=== PATIENT | female | born 1995 | race Caucasian/White ===

== ENCOUNTER 2023-01-13 07:53 | Emergency (ER) | payer OTHER, SELFPAY ==
[2023-01-13 07:59] VITALS: BP 118/74; PULSE 77; RESP 16; TEMP 36.2; O2SAT 100; BMI 21.6
--- NOTE | 2023-01-13 08:59 | ED.GENADULT ---
HPI - General Adult General Chief complaint: Animal Bite Stated complaint: bug bite r arm Time Seen by Provider: 01/13/23 08:56 Related Data Allergies Allergy/AdvReac Type Severity Reaction Status Date / Time Sulfa (Sulfonamide Allergy Intermediate HIVES Unverified 03/11/20 16:19 Antibiotics) [SULFA (SULFONAMIDE ANTIBIOTICS)] penicillin V AdvReac Unknown shortness Verified 10/30/19 00:00 of breath Sulfa Allergy Unknown hives Uncoded 10/30/19 00:00 PMFSH Social History Social History Alcohol intake: current Alcohol intake frequency: holidays/special occasions only Smoked in Last 30 Days: No Use of substances other than those prescribed or required for medical reasons: No Advance Directives: No Advance Directives Information Provided: No Physical Exam ED Vital Signs: Vital Signs - 24 hr 01/13/23 07:59 Temperature 97.2 F Pulse Rate 77 Respiratory Rate 16 Blood Pressure 118/74 Pulse Oximetry 100 Oxygen Delivery Method Nasal Cannula BMI result Body Mass Index 21.6 Discharge Plan Discharge Patient Disposition: Left Without Being Seen Discharge Date/Time: 01/13/23 09:44
--- NOTE | 2023-01-13 09:42 | PC.NURSE ---
left without being seen as too long and had stuff to do I explained that the provider was tied up with a sick patient and she didn't care to wait any longer.
== END 2023-01-13 09:44 | disposition left against medical advice (07) ==
PROVIDERS: Emergency Provider Emergency Medicine
DX: S50.862A Insect bite (nonvenomous) of left forearm, initial encounter (principal); W57.XXXA Bitten or stung by nonvenomous insect and other nonvenomous arthropods, initial encounter; Y93.9 Activity, unspecified; Y92.9 Unspecified place or not applicable; Y99.9 Unspecified external cause status
CPT/HCPCS: 99282; 99283

== ENCOUNTER 2023-11-24 07:30 | Emergency (ER) | payer OTHER, SELFPAY ==
[2023-11-24 07:31] VITALS: BP 98/56; PULSE 57; RESP 19; TEMP 36.6; O2SAT 98; BMI 21.5
[2023-11-24 07:50] VITALS: BP 109/55; PULSE 66; RESP 17; TEMP 36.6; O2SAT 99
--- NOTE | 2023-11-24 07:58 | ED_ITS ---
HPI - General Adult General Chief complaint: General Medical Stated complaint: Lump in right breast Time Seen by Provider: 11/24/23 07:46 Source: patient Mode of arrival: ambulatory Limitations: no limitations History of Present Illness ED Provider: DR. Garcia HPI narrative: 28-year-old female who was otherwise healthy came in concern of incidental mass found on her right breast while patient was checking herself last week, patient has no PCP currently and trying to find PCP for a while now. No known family history of breast cancer. No weight loss, no night sweat, no breast pain, no nipple bleeding or discharge. Related Data Allergies Allergy/AdvReac Type Severity Reaction Status Date / Time Sulfa (Sulfonamide Allergy Intermediate HIVES Verified 11/24/23 07:33 Antibiotics) [SULFA (SULFONAMIDE ANTIBIOTICS)] penicillin V AdvReac Unknown shortness Verified 11/24/23 07:33 of breath Sulfa Allergy Unknown hives Uncoded 11/24/23 07:33 Review of Systems Review of Systems: All other systems are reviewed and are negative Constitutional: Reports as per HPI and Reports no additional constitutional complaints Eyes: Reports as per HPI and Reports no additional eye complaints Reports system reviewed and no additional complaints, except as documented Cardiovascular: Reports as per HPI and Reports no additional cardiovascular complaints Respiratory: Reports as per HPI and Reports no additional respiratory complaints Gastrointestinal: Reports as per HPI and Reports no additional gastrointestinal complaints Genitourinary: Reports no additional female genitourinary complaints Musculoskeletal: Reports no additional musculoskeletal complaints Skin/Breast: Reports system reviewed and no additional complaints, except as docu Psychiatric: Reports no additional psychiatric complaints Endocrine: Reports no additional endocrine complaints Hematologic/Lymphatic: Reports no additional hematologic/lymphatic complaints Allergic/Immunologic: Reports no additional allergic/immunologic complaints Reports system reviewed and no additional complaints, except as documented and Reports Abnormal speech present [facility] Social History Social History Alcohol intake: current Alcohol intake frequency: holidays/special occasions only Advance Directives: No Physical Exam ED Vital Signs: Vital Signs - 24 hr 11/24/23 07:31 11/24/23 07:50 Temperature 98 F 97.9 F Pulse Rate 57 66 Respiratory Rate 19 17 Blood Pressure 98/56 L 109/55 L Pulse Oximetry 98 99 Oxygen Delivery Method Room Air Room Air BMI result Body Mass Index 21.5 Vital signs have been reviewed and appear to be correct. Blood pressure elevated. Heart rate normal. Respiratory rate normal. Temperature normal. Oxygen saturation normal. Appearance: Alert. Oriented X3. No acute distress. Head: Normal external exam. Normocephalic. Atraumatic. No Mchugh signs noted. No raccoon eyes noted Eyes: PERRLA. EOMI. Conjunctiva and sclera normal. Eyelids normal. ENT: TM's Normal. Pharynx normal. Uvula midline. Moist mucous membranes. No trismus noted. No drooling noted. No muffled voice noted. Neck: Normal inspection. Neck supple. FROM. No adenopathy. Thyroid Normal. No meningeal signs. No neck mass noted. CVS: Normal heart rate and rhythm. Heart sound normal. No murmurs noted. Pulses normal throughout. Breast exam: In the presence of female preschool assistant teacher in room bilateral breast exam was performed revealed no enlarged lymph node, 2 x 3 cm area of nontender mobile right breast mass at 10:00 o'clock zone of the right breast, no nipple discharge, no nipple bleeding. Respiratory: No respiratory distress. Painless inspiration. Breath sounds normal. No wheezes/rales/rhonchi noted. Chest nontender. No accessory muscle usage noted or decreased air movement noted. Abdomen: Soft and nontender. Bowel sounds normal in all 4 quadrants. No distention noted. No organomegaly noted. No visible injury noted. Back: No CVA tenderness. Full range of motion noted. Skin: Skin warm and dry. Normal skin color. Normal skin turgor. No rashes/lesions/lacerations noted. Extremities: No lower extremity edema. Extremities exhibit normal range of motion. Extremities nontender. Neuro: Oriented X 3. Cranial nerve exam: II-XII are grossly intact No motor deficit. No sensory deficit. Reflexes normal. Course Reevaluation(s) Reevaluation #1: Unfortunate 28-year-old female otherwise healthy came in for evaluation of inc idental right breast mass, patient indeed will need follow-up with PCP/general surgeon for further evaluation. Will refer to [facility] and general surgeon. Patient was made aware that follow-up with mammogram/ultrasound brenna is empirical. Emergent mammogram is not available test in our facility that usually require referral from PCP. Time: 08:05 Medical Decision Making Differential Diagnosis Differential Diagnoses: The differential diagnosis associated with the presenta tion includes (Right breast cellulitis, right breast mass.) Admission/Observation Consideration of admission/observation: Escalation of care including admission/observation considered Discharge Plan Discharge Clinical Impression: Breast mass, right Patient Disposition: Home, Self-Care Instructions: Breast Mass (ED), Breast Self Exam for Women (ED) Referrals: Brandt Solitario MD [Physician] - Amberly Perez MD [Physician] - Print Language: Prydeinig
[2023-11-24 08:19] VITALS: BP 109/55; PULSE 66; RESP 17; TEMP 36.6; O2SAT 99
== END 2023-11-24 08:19 | disposition home or self-care (01) ==
PROVIDERS: Emergency Provider Emergency Medicine
DX: N63.11 Unspecified lump in the right breast, upper outer quadrant (principal)
CPT/HCPCS: 99283

== ENCOUNTER 2023-12-11 09:45 | Outpatient (AMB) | payer OTHER, SELFPAY ==
--- NOTE | 2023-12-11 09:55 | MHC.OFFVIS ---
Vital Signs 12/11/23 10:04 Height 5 ft 4 in Weight 125 lb BMI 21.5 BP 110/67 Blood Pressure Location Lt brachial Position Sitting Pulse 56 Intake Visit Reasons: ER f/u breast mass Intake Note: Patient is seen in office for ER follow up visit, following right breast lump. Pt c/o: feels a lump on the right breast for 3 wks, admits to increase, painful only with bra, denies redness, discoloration, no fm hx of breast concerns ED:11/24/23 Legal Examiner Required: No Refrigerator Repair Technician: Refrigerator Repair Technician Present Accompanied by: Self / Same As Patient Allergies Sulfa (Sulfonamide Antibiotics) [SULFA (SULFONAMIDE ANTIBIOTICS)] Allergy (Intermediate, Verified 12/11/23 10:01) HIVES penicillin V Adverse Reaction (Unknown, Verified 12/11/23 10:01) shortness of breath Sulfa Allergy (Unknown, Uncoded 12/11/23 10:01) hives Medication List - Last Reconciled 12/11/23 by Ramone Shaw MD propranolol ER 60 mg PO DAILY HPI Comments Details: 28-year-old female patient presenting with a three-week history of a palpable breast mass noted in the right breast at the upper outer quadrant. She noted pain in the right breast after wearing a wire bra rather than a sports bra and subsequently noted the palpable lump. She denies a previous history of breast problems or breast surgery. Her family history is negative for breast cancer. She was evaluated in the emergency department and the palpable lump confirmed. No imaging was performed the emergency department. Since her evaluation on 11/24/2023, she feels the lump has possibly increased in size. She denies any overlying skin changes or nipple discharge. She is G0. [facility] Medical History (Updated 12/11/23 @ 10:34 by Ramone Shaw MD) Migraine headache Family History (Updated 12/11/23 @ 10:03 by MAYRA Ball) Maternal Grandmother Lung cancer Social History Alcohol intake: current Alcohol intake frequency: holidays/special occasions only Female Reproductive History Menstrual Age of Menarche: 11 Review of Systems Const All systems reviewed & are unremarkable except as noted in HPI and below Denies chills, Denies fever(s), Denies headache(s), Denies poor appetite and Denies weakness ENT Denies headache(s) Card Denies chest pain, Denies irregular heart rhythm, Denies palpitations and Denies dyspnea Resp Denies cough, Denies excessive phlegm production and Denies dyspnea GI Denies abdominal pain, Denies bloating, Denies change in bowel habits, Denies constipation, Denies heartburn, Denies diarrhea, Denies nausea and Denies vomiting Denies urinary frequency Musc Denies back pain, Denies muscle weakness and Denies numbness Skin/Breast Reports as per HPI, Reports breast pain, Reports breast mass, Denies changing lesions and Denies unusual bruising Neuro Denies headache(s), Denies numbness, Denies paresthesias and Denies weakness Psych Denies anxiety and Denies depression Endo Denies palpitations Jv/Lymph Denies lymphadenopathy Physical Exam Const General: cooperative and no acute distress Nutritional Appearance: well nourished Orientation/consciousness: patient oriented x3 Limitations: no limitations HEENT Head: Yes normocephalic and Yes atraumatic Ears: hearing grossly normal bilaterally Chest Other: Left breast: No skin change, no nipple retraction, no nipple discharge, no palpable mass, no enlarged lymph nodes. Right breast: No skin change, no nipple retraction, no nipple discharge, palpable mass approximately 1.5 cm in diameter located in the upper outer quadrant, 10:00 o'clock, mobile within the breast tissue and nontender to palpation. No other palpable mass and no enlarged lymph nodes. Chest/axillae images: 1. Site of palpable mass upper outer quadrant right breast Resp Effort & Inspection: normal respiratory effort, no audible wheezes, no cough and no respiratory distress Cardio Jugular venous distension: no JVD GI Inspection: Yes normal to inspection Skin Other: Warm, dry, no rash Neuro General: patient oriented x3 Extrem General: Yes no clubbing, cyanosis or edema Assessment & Plan Assessment & Plan (1) Breast mass, right: Code(s): N63.10 - Unspecified lump in the right breast, unspecified quadrant Category: Medical Qualifiers: Breast mass location: upper outer quadrant Qualified Code(s): N63.11 - Unspecified lump in the right breast, upper outer quadrant Plan 28-year-old female patient presenting with a palpable mass located in the right breast at the upper outer quadrant 1st noted approximately 3 weeks ago. On examination she is noted to have a mobile mass measuring approximately 1.5 cm in diameter, most consistent with a fibroadenoma. I recommended further workup with mammogram and ultrasound. I would suspect she will require a needle core biopsy but will await further workup. Patient expressed understanding and agrees with the plan. Orders: Orders MM diagnostic mammo BI Today N63.10 - Unspecified lump in the right breast, unspecified quadrant US breast RT limited Today N63.10 - Unspecified lump in the right breast, unspecified quadrant Coding Level of Care Code New Pt Level 4 (58195) Diagnoses Mass of upper outer quadrant of right breast N63.11 Breast mass location: upper outer quadrant
[2023-12-11 10:04] VITALS: BP 110/67; PULSE 56; BMI 21.5
== END 2023-12-11 10:32 | disposition home or self-care (01) ==
PROVIDERS: Visit Provider Surgery
DX: N63.11 Unspecified lump in the right breast, upper outer quadrant (principal)
CPT/HCPCS: 99204

== ENCOUNTER → 2023-12-11 09:45 | Outpatient (BNVA) | payer OTHER, SELFPAY | PROVIDERS: Visit Provider Surgery | DX: N63.11 Unspecified lump in the right breast, upper outer quadrant (principal) | CPT/HCPCS: 99202 ==

== ENCOUNTER 2023-12-12 13:18 | Outpatient (REF) | payer OTHER, SELFPAY ==
--- NOTE | ~2023-12-12 | US_ITS ---
EXAMINATION: US DIAGNOSTIC ULTRASOUND BREAST, RIGHT CLINICAL INFORMATION: 28-year-old female, palpable mass 10:00 axis right breast. COMPARISON: None available. TECHNIQUE: Ultrasound of the right breast is performed with real-time jovel scale imaging and color Doppler. Attention was given to the palpable abnormality at the 10:00 axis with scanning from the 8:00 to the 12:00 axis. FINDINGS: At the 10:00 axis, 4 cm from the nipple, there is a palpable cluster of cysts present, with a dominant cyst measuring up to 1.6 x 1.3 x 1.5 cm. There are 2 abutting smaller cysts with a thin septation intervening. No color Doppler signal or soft tissue nodularity within the septation. These findings are benign. No follow-up is recommended. Incidentally noted at the 12:00 axis is an oval complicated cyst versus benign fibroadenoma with circumscribed margins, wider than tall, good through transmission, hypoechoic with low-level internal echoes, no internal color Doppler flow, measuring 1.0 x 0.5 x 0.7 cm. This is probably benign and six-month interval follow-up targeted right breast ultrasound recommended. No suspicious findings are evident sonographically. Results are provided to the patient at time of visit by the technologist. US/US breast RT limited mamm only IMPRESSION: -Palpable focus right breast corresponds with a benign cluster of cysts, with a dominant cyst measuring up to 1.6 cm. These findings are benign and no further follow-up recommended. Cyst Aspiration could be performed should this be bothersome to the patient. -Incidentally noted right breast 12:00 axis is a probable circumscribed fibroadenoma versus complicated cyst measuring 1.0 x 0.5 x 0.7 cm, with good through transmission. Six-month interval follow-up targeted right breast ultrasound recommended to ensure stability. ASSESSMENT: BI-RADS 3 - Probably benign finding(s) - 6 month follow-up suggested RECOMMENDATION: 6 Month F/U This patient's information was entered into a reminder system with a target due date for their follow-up.
== END 2023-12-12 13:19 | disposition home or self-care (01) ==
LOC: HO.MAMMO 13:18
PROVIDERS: Visit Provider Surgery
DX: N63.11 Unspecified lump in the right breast, upper outer quadrant (principal)
CPT/HCPCS: 76642

== ENCOUNTER → 2023-12-12 13:30 | Outpatient (BNV) | payer OTHER, SELFPAY | PROVIDERS: Visit Provider Radiology Diagnostic Radiology | DX: D24.1 Benign neoplasm of right breast (principal) | CPT/HCPCS: 76642 ==

== ENCOUNTER 2023-12-18 09:11 | Outpatient (AMB) | payer OTHER, SELFPAY ==
[2023-12-18 09:23] VITALS: BP 94/60; PULSE 60; RESP 16; BMI 21.4
--- NOTE | 2023-12-18 09:23 | MHC.OFFVIS ---
Vital Signs 12/18/23 09:23 Height 5 ft 4 in Weight 124 lb 12.506 oz BMI 21.4 BP 94/60 Blood Pressure Location Lt brachial Position Sitting Respiration 16 Pulse 60 Intake Visit Reasons: s/p mammo and US Allergies Sulfa (Sulfonamide Antibiotics) [SULFA (SULFONAMIDE ANTIBIOTICS)] Allergy (Intermediate, Verified 12/11/23 10:01) HIVES penicillin V Adverse Reaction (Unknown, Verified 12/11/23 10:01) shortness of breath Medication List - Last Reconciled 12/18/23 by Navi Solomon RN propranolol ER 60 mg PO DAILY HPI Comments Details: 28-year-old female patient returning following her recent ultrasound of the right breast which revealed a cluster of cysts corresponding to the palpable mass in the upper outer quadrant right breast. Also identified was a smaller density suggestive of a fibroadenoma in the 12 o'clock position right breast. Repeat ultrasound in 6 months was recommended and has been ordered. She continues to report discomfort associated with a palpable mass in the upper outer quadrant. We discussed needle aspiration and she wishes to proceed with this today. [facility] Medical History Migraine headache Family History Maternal Grandmother Lung cancer Social History Alcohol intake: current Alcohol intake frequency: holidays/special occasions only Female Reproductive History Menstrual Age of Menarche: 11 Review of Systems Const All systems reviewed & are unremarkable except as noted in HPI and below Physical Exam Vital Signs: Last Vital Signs Pulse 60 12/18/23 09:23 Resp 16 12/18/23 09:23 BP 94/60 12/18/23 09:23 BMI result Body Mass Index 21.4 Const General: comfortable Nutritional Appearance: well nourished Orientation/consciousness: patient oriented x3 Chest Chest/axillae images: 1. Palpable cyst in the upper outer quadrant Resp Effort & Inspection: normal respiratory effort Skin General skin exam: no rashes or lesions noted Neuro General: patient oriented x3 Office Procedures FNA BIOPSY FNA Biopsy Preoperative diagnosis: Right breast cyst at 10:00 o'clock Postoperative diagnosis: Same Procedure: Fine-needle aspiration right breast cyst 10:00 o'clock Surgeon: Ramone Shaw MD Residential Service Technician: None Anesthesia: Lidocaine 1% with epinephrine Indications for procedure: Painful cyst right breast upper outer quadrant (10:00 o'clock). Operative findings: 1.5 ml clear breast fluid Specimen: None Estimated blood loss: None Complications: None Procedure details: Patient was placed in a supine position. After confirming the site of procedure assuring informed consent, the skin was prepped with Betadine and draped in a sterile fashion. Local was infiltrated over the cyst. A fine needle was then inserted into the cyst and the 1.5 mL fluid aspirated. Cyst was no longer palpable following this. A sterile bandage was applied. The patient tolerated the procedure well and was discharged to home in stable condition. Fine Needle Aspiration: 26347- FNA 1st lesion w/o image Assessment & Plan Assessment & Plan (1) Breast cyst: Code(s): N60.09 - Solitary cyst of unspecified breast Category: Medical Qualifiers: Laterality: right Qualified Code(s): N60.01 - Solitary cyst of right breast Plan 28-year-old female patient presenting with a right breast cyst confirmed by ultrasound. A needle aspiration was performed today and the patient tolerated this well. Cyst is no longer palpable at this time. I recommended follow-up ultrasound in 6 months. She should follow up as needed. Coding Level of Care Code Est Pt Level 3 (48717) Diagnoses Cyst of right breast N60.01 Laterality: right CPT Codes FNA Biopsy - Fine Needle Aspiration: 97948- FNA 1st lesion w/o image ([id number])
== END 2023-12-18 09:54 | disposition home or self-care (01) ==
PROVIDERS: Visit Provider Surgery
DX: N60.01 Solitary cyst of right breast (principal)
CPT/HCPCS: 10021; 99213

== ENCOUNTER → 2023-12-18 09:11 | Outpatient (BNVA) | payer OTHER, SELFPAY | PROVIDERS: Visit Provider Surgery | DX: N63.11 Unspecified lump in the right breast, upper outer quadrant (principal); N60.01 Solitary cyst of right breast | CPT/HCPCS: 10021; 99212 ==

== ENCOUNTER 2024-01-15 10:02 | Outpatient (REF) | payer OTHER, SELFPAY ==
[2024-01-15 10:31] LABS: MANUAL DIFF FLAG NO
[2024-01-15 11:33] LABS: Basophils Percent Auto 0.5 % (0-2); Eosinophils Absolute Auto 0.3 X10*3/uL (0.0-0.4); Eosinophils Percent Auto 6.2 % (0-4); Hematocrit 40.4 % (37.0-47.0); Hemoglobin 13.4 g/dl (12.0-16.0); Imm Gran Abs Auto 0.01 X10*3/uL (0.00-0.03); Imm Gran Pct Auto 0.2 % (0.0-0.4); Lymphocytes Absolute Auto 1.1 X10*3/uL (1.2-4.9); Lymphocytes Percent Auto 26.3 % (20-40); Mean Corpuscular HGB Conc 33.2 g/dl (31.0-35.0); Mean Corpuscular Hemoglobin 31.7 pg (27.0-33.0); Mean Corpuscular Volume 95.5 fL (80.0-98.0); Mean Platelet Volume 9.5 fL (9.4-12.3); Monocytes Absolute Auto 0.4 X10*3/uL (0.1-1.2); Monocytes Percent Auto 8.3 % (2-11); Neutrophils Absolute Auto 2.5 x10*3/uL (2.0-8.3); Neutrophils Percent Auto 58.5 % (45-73); Platelet Count 244 X10*3/uL (160-400); Red Blood Count 4.23 X10*6/uL (4.20-5.50); Red Cell Distribution Width 11.9 % (11.0-16.0); White Blood Count 4.3 X10*3/uL (4.8-10.8)
[2024-01-15 12:15] LABS: Alanine Aminotransferase 10 U/L (0-31); Albumin Level 4.2 g/dL (3.5-5.0); Alkaline Phosphatase 53 U/L (39-117); Anion Gap 11 (12-20); Aspartate Amino Transferase 14 U/L (5-31); Bilirubin Total 0.7 mg/dL (0.0-1.0); Blood Urea Nitrogen 10 mg/dL (9-16); Calcium 9.1 mg/dL (8.4-10.2); Carbon Dioxide 28 mmol/L (22-29); Chloride 106 mmol/L (96-108); Cholesterol 163 mg/dL (<200); Estimated Glomerular Filt Rate > 60; Glucose Random 87 mg/dL (60-115); HDL Cholesterol 66 mg/dL (>40); LDL Cholesterol Calculated 84 mg/dL (<100); Potassium 4.3 mmol/L (3.3-5.1); Sodium 141 mmol/L (135-145); Total Protein 6.9 g/dL (6.5-8.0); Triglycerides 68 mg/dL (<150)
[2024-01-15 12:30] LABS: Free T4 (Free Thyroxine) 0.93 ng/dL (0.71-1.85); Thyroid Stimulating Hormone 0.77 uIU/mL (0.32-4.0)
== END 2024-01-15 10:03 | disposition home or self-care (01) ==
LOC: HO.LAB 10:02
PROVIDERS: PCP Internal Medicine; Visit Provider Internal Medicine
DX: Z00.00 Encounter for general adult medical examination without abnormal findings (principal); R53.83 Other fatigue; E78.5 Hyperlipidemia, unspecified
CPT/HCPCS: 36415; 80053; 80061; 84439; 84443; 85025

== ENCOUNTER 2024-07-02 10:44 | Outpatient (REF) | payer OTHER, SELFPAY ==
--- NOTE | ~2024-07-02 | US_ITS ---
EXAMINATION: US DIAGNOSTIC ULTRASOUND BREAST, RIGHT CLINICAL INFORMATION: 6 month follow-up for hypoechoic oval right breast mass at 12:00.. COMPARISON: Comparison is made with relevant prior imaging. TECHNIQUE: Ultrasound of the breast is performed with real-time jovel scale imaging and color Doppler. FINDINGS: Targeted color Doppler ultrasound demonstrates a hypoechoic oval parallel circumscribed solid mass at 12:00 3 cm from nipple measuring 9 x 5 x 8 mm not significantly changed from prior ultrasound. This mass has morphology consistent with a benign fibroadenoma versus complicated cyst. Results are discussed with the patient at time of visit. US/US breast RT limited mamm only IMPRESSION: Probably benign oval hypoechoic solid mass at 12:00 in the right breast. Recommend 6 month follow-up ultrasound for further evaluation of stability. ASSESSMENT: BI-RADS 3: Probably Benign RECOMMENDATION: Diagnostic ultrasound in 6 months. This patient's information was entered into a reminder system with a target due date for their next imaging exam. Electronically signed by: Rossy Rojas DO 07/02/2024 11:38 AM FAMILIA
== END 2024-07-02 10:45 | disposition home or self-care (01) ==
LOC: HO.MAMMO 10:44
PROVIDERS: PCP Internal Medicine; Visit Provider Internal Medicine
DX: R92.2 Inconclusive mammogram (principal)
CPT/HCPCS: 76642

== ENCOUNTER → 2024-07-02 11:00 | Outpatient (BNV) | payer OTHER, SELFPAY | PROVIDERS: PCP Internal Medicine; Visit Provider Internal Medicine | DX: N63.10 Unspecified lump in the right breast, unspecified quadrant (principal) | CPT/HCPCS: 76642 ==

== ENCOUNTER 2025-01-21 09:46 | Outpatient (REF) | payer BC, SELFPAY ==
--- OUTSIDE RECORDS SUMMARY | 2022-03-09 10:14 | XMS_ITS | Encounter Summary ---
Author Organization [facility] Address [address] [place] [phone] Phone Care Team Providers Care Platen Press Feeder Name Role Phone Pcp, Unknown Primary Care Provider Unavailabl e Encounter Details Date Type Department Care Team (Late st Contact Info) Description 03/09/2022 10:14 AM EDT Hospital Encounter [facility] [address] [place] [id number] aRisa Mckeon CNP [address] [place] [phone] [email or web address] Social History Tobacco Use Types Packs/Day Years Used Date Smoking Tobacco: Never Smokeless Tobacco: Current Alcohol Use Standard Drinks/Week Comments Not Currently 0 (1 standard drink = 0.6 oz pur e alcohol) Education Answer Date Recorded Are you interested in more education? Not on justin e 10/20/2022 Are you concerned about learning? Not on file 10/20/2022 No 10/20/2022 No 10/20/2022 Digital Access Answer Date Recorded No 11/18/2022 No 11/18/2022 No 11/18/2022 Reliable internet access at home? Not on file 11/18/2022 Device with a working camera? Not on file Comments No Sex and Gender Information Value Date Recorded Sex Assigned at Female 11/20/2018 2:06 PM EDT Legal Sex Female 10:25 PM EDT Gender Identity Female 11/20/2018 2:06 PM EDT Sexual Orientation Straight 11/20/2018 2: 06 PM EDT documented as of this encounter Plan of Treatment Not on file documented as of this encounter Procedures Procedure Name Priority Date/Time Associated Diagnosis Comments XR KNEE 4 OR MORE VIEWS (RIGHT) Urgent/patient waiting 03/09/2022 10:19 AM EDT Effusion of right knee documented in this encounter Results * XR KNEE 4 OR MORE VIEWS (RIGHT) (03/09/2022 10:19 AM EDT) Anatomical Region Laterality Modality Knee Right Computed Radiogr aphy 03/09/2022 11:0 4 AM EDT Impressions 03/09/2022 11:04 AM EDT No fracture or dislocation. Narrative 03/09/2022 11:04 AM EDT XR KNEE 4 OR MORE VIEWS (RIGHT) COMPARISON: None. FINDINGS: No fracture. Normal alignment. Normal joint spaces. No effusion. Procedure Note Jacqui Yarbrough MD - 03/09/2022 XR KNEE 4 OR MORE VIEWS (RIGHT) COMPARISON: None. FINDINGS: No fracture. Normal alignment. Normal joint spaces. No effusion. IMPRESSION: No fracture or dislocation. Raisa Mckeon CUSHION COVER INSPECTOR IMG XR LOWER EXTREMITY Celina l Result documented in this encounter Visit Diagnoses Not on filedocumented in this encounter Care Teams Platen Press Feeder Relationship Specialty Start Date End Date Pcp, Unknown PCP - General 03/09/22 documented as of this encounter Additional Source Comments The information contained in this document represents components of the legal health record. It is not the complete legal health record.[facility]
--- NOTE | ~2025-01-21 | US_ITS ---
EXAMINATION: US DIAGNOSTIC ULTRASOUND BREAST, RIGHT CLINICAL INFORMATION: 1 year follow-up for hypoechoic oval circumscribed mass in the right breast at 12:00 on ultrasound.. COMPARISON: Comparison is made with relevant prior imaging. TECHNIQUE: Ultrasound of the breast is performed with real-time jovel scale imaging and color Doppler. FINDINGS: Targeted color Doppler ultrasound scanning in the right breast at 12:00 3 cm from the nipple again demonstrates a hypoechoic parallel circumscribed oval solid mass not significantly changed from prior ultrasound measuring 8 x 9 x 5 mm. Results are discussed with the patient at time of visit. US/US breast RT limited mamm only IMPRESSION: Hypoechoic oval circumscribed solid mass at 12:00 3 cm from the nipple in the right breast not significantly changed from prior ultrasounds dating back for one year. Probably benign. Recommend one-year follow-up to demonstrate 2 years of stability. ASSESSMENT: BI-RADS 3: Probably Benign RECOMMENDATION: Diagnostic ultrasound at time of next annual exam, due in 12 months. This patient's information was entered into a reminder system with a target due date for their next mammogram. Electronically signed by: Rossy Rojas DO 01/21/2025 10:29 AM EDT
--- OUTSIDE RECORDS SUMMARY | 2025-01-21 10:24 | XMS_ITS ---
Author Name [facility] Organization Unknown Encounters Encounter Type Encounter Reason Primary Diagnosis Location Date Ambulatory [facility] ([facility]) 06/02/2024
--- OUTSIDE RECORDS SUMMARY | 2025-01-21 10:24 | XMS_ITS | Clinical Summary ---
Author Organization [facility] Address [address] [place] [address] Care Team Providers Care Payroll Clerk Name Role Phone Christopher Collins Primary Care Provider [phone] Allergies Active Allergy Reactions Criticality Noted Date Comments Sulfa (Sulfonamide Antibiotics) Unknown 12/23 Medications levonorgestreL (MIRENA) 20 mcg/24 hours (5 yrs) 52 mg 5 year intrauterine device 1 each by intrauterine route once. Use as directed. Active rizatriptan (MAXALT) 10 mg tablet TAKE 1 TABLET BY MOUTH AT ONSET OF MIGRAINE. MAY REPEAT IN 2 HOURS. MAXIMUM 2 PER DAY, 6 PER WEEK 9 tablet 11 5 Active Active Problems Problem Noted Date Diagnosed Date Migraine without aura and wi thout status migrainosus, not intractable 01/06/2020 Social History Tobacco Use Types Packs/Day Years Used Date Smoking Tobacco: Never Smokeless Tobacco: Never Tobacco Cessation:Counseling Given: Not Answered Comments Unknown Sex and Gender Information Value Date Recorded Sex Assigned at Female 12/23/2019 10:14 PM EDT Legal Sex Female 2:10 PM EST Gender Identity Female 12/23/2019 10:14 PM EDT Sexual Orientation Straight 12/23/2019 10 :14 PM EDT Last Filed Vital Signs Vital Sign Reading Time Taken Comments Blood Pressure 110/60 07/10/2024 9:55 AM EST Pulse 79 07/10/2024 9:55 AM EST Temperature 36.7 C (98 F) 02/13/2024 8:56 AM EDT Respiratory Rate - - Oxygen Saturation 98% 02/13/2024 8:56 AM EDT Inhaled Oxygen Concentration - - Weight 59 kg (130 lb) 07/10/2024 9:55 AM EST Height 162.6 cm (5' 4 ) 07/10/2024 9:55 AM EST Body Mass Index 22.31 07/10/2024 9:55 AM EST Plan of Treatment Upcoming Encounters Date Type Department Care Team ([facility] [facility] Contact Info) Description 07/14/2025 10:30 AM EST Follow-Up [facility] Neurology [address] [place] [id number] Heather Blancas MD [address] [place] [address] Health Maintenance Due Date Last Done Comments Cervical Cancer Screening 1994 HIV Screening 1994 HPV and Pap Smear 1994 Pap Smear 1994 Varicella Vaccines (2 of 2 - 2-dose childhood series) 1998 10/23/1996 DTaP,Tdap,and Td Vaccines (8 - Td or Tdap) 01/24/2023 01/24/2013, 02/06/2006, 02/17/1999, Additional history exists COVID-19 Vaccine ( - season) 2024 Alcohol/Substance Use Screening 06/25/2024 Influenza Vaccine (#1) 2025 05/13/2009, 2008 RSV Vaccine (60+ years old and patients) (1 - 1-dose 75+ series) 2069 Hepatitis B Vaccines Completed 10/01/2014, 05/29/2013, 01/24/2013, Additional history exists Pneumococcal Vaccine: Pediatric (0-5 Years) and At-Risk Patients (6-50 Years) Aged Out No longer eligible based on patient's age to complete this topic Insurance [employer] Care Teams Payroll Clerk Relationship Specialty Start Date End Date Christopher Collins [address] [place] [phone] PCP - General Internal Medicine 02/13/24
== END 2025-01-21 09:47 | disposition home or self-care (01) ==
LOC: HO.MAMMO 09:46
PROVIDERS: Absent Provider Surgery; PCP Internal Medicine; Visit Provider Internal Medicine
DX: R92.2 Inconclusive mammogram (principal)
CPT/HCPCS: 76642

== ENCOUNTER → 2025-01-21 10:00 | Outpatient (BNV) | payer BC, SELFPAY | PROVIDERS: Absent Provider Surgery; PCP Internal Medicine; Visit Provider Internal Medicine | DX: N63.12 Unspecified lump in the right breast, upper inner quadrant (principal) | CPT/HCPCS: 76642 ==